=== PATIENT | male | born 1975 | race Two or more races ===

== ENCOUNTER 2022-08-07 22:53 | Inpatient (IN) | payer MEDICARE, MEDICAID ==
[2022-08-08] MEDS ORDERED: HALOPERIDOL 5 MG TABLET PO PRN (03:00)
[2022-08-08] MEDS ORDERED: ZOLPIDEM TARTRATE 10 MG TABLET PO PRN (03:00)
[2022-08-08 03:45] VITALS: BP 99/86
[2022-08-08] MEDS: CEPHALEXIN MONOHYDRATE 500 MG CAPSULE PO SCH ×4 (08:07→21:00)
[2022-08-08 08:09] VITALS: BP 94/53
[2022-08-08] MEDS: LORazepam 2 MG TABLET PO PRN ×2 (10:57→16:14)
[2022-08-08] MEDS ORDERED: DiphenhydrAMINE HCL 50 MG/ML VIAL ONE (11:13)
[2022-08-08] MEDS ORDERED: HALOPERIDOL LACTATE 5 MG/ML VIAL ONE (11:13)
[2022-08-08] MEDS ORDERED: HALOPERIDOL LACTATE 5 MG/ML VIAL IM ONE ×2 (11:15→16:15)
[2022-08-08] MEDS ORDERED: LORazepam 2 MG/ML VIAL IM ONE ×2 (11:15→16:15)
[2022-08-08] MEDS ORDERED: DiphenhydrAMINE HCL 50 MG/ML VIAL IM ONE ×2 (11:15→16:15)
[2022-08-08] MEDS ORDERED: TUBERCULIN, PURIFIED PROTEIN DERIVATIVE 5 TU/0.1 ML SYRINGE ID ONE (15:45)
[2022-08-08] MEDS ORDERED: CYANOCOBALAMIN 1,000 MCG/ML VIAL IM ONE (15:45)
[2022-08-08] MEDS ORDERED: GuaiFENesin/D-METHORPHAN [SUGAR-FREE] 200-20MG/10 ML SYRUP UDCUP PO PRN (15:45)
[2022-08-08] MEDS ORDERED: MAGNESIUM HYDROXIDE SUSPENSION 30 ML UDCUP PO PRN (15:45)
[2022-08-08] MEDS ORDERED: ACETAMINOPHEN 325 MG TABLET PO PRN (15:45)
[2022-08-08] MEDS ORDERED: MAG HYDROX/AL HYDROX/SIMETH ES 30 ML SUSPENSION UDCUP PO PRN (15:45)
[2022-08-08 16:00] VITALS: BP 115/62
[2022-08-08] MEDS: THIAMINE 100 MG TABLET PO SCH (16:29)
[2022-08-08] MEDS: DIVALPROEX SODIUM 500 MG ER TABLET PO SCH (21:00)
[2022-08-08] MEDS: MELATONIN 5 MG TABLET PO SCH (21:00)
[2022-08-08] MEDS: OLANZapine 5 MG RAPDIS TABLET PO SCH (21:00)
[2022-08-09] VITALS (7 sets, daily range): BP systolic 97–124; BP diastolic 62–82
[2022-08-09 07:41] LABS: HEMOGLOBIN A1C 4.6 % (3.8-5.6)
[2022-08-09] MEDS: OLANZapine 5 MG RAPDIS TABLET PO PRN ×2 (07:45→16:13)
[2022-08-09] MEDS: LORazepam 2 MG TABLET PO PRN ×3 (07:45→20:25)
[2022-08-09 07:55] LABS: CHOL/HDL RATIO 1.8 (4.2-7.3); FREE T4 (FREE THYROXINE) 1.09 ng/dL (0.76-1.46); THYROID STIMULATING HORMONE 2.2 uIU/mL (0.36-3.74)
[2022-08-09] MEDS: MULTIVITAMINS WITH MINERALS, THERAPEUTIC TABLET PO SCH (08:00)
[2022-08-09] MEDS: CEPHALEXIN MONOHYDRATE 500 MG CAPSULE PO SCH ×4 (08:00→20:25)
[2022-08-09] MEDS: THIAMINE 100 MG TABLET PO SCH ×2 (08:00→16:12)
[2022-08-09] MEDS: OMEGA-3/DHA/EPA/FISH OIL 1,000 MG CAPSULE PO SCH (08:05)
[2022-08-09] MEDS: FOLIC ACID 1 MG TABLET PO SCH (08:05)
[2022-08-09] MEDS: HydrOXYzine PAMOATE 50 MG CAPSULE PO PRN ×2 (16:12→20:25)
[2022-08-09] MEDS: OLANZapine 5 MG RAPDIS TABLET PO SCH (20:24)
[2022-08-09] MEDS: DIVALPROEX SODIUM 500 MG ER TABLET PO SCH (20:24)
[2022-08-09] MEDS: MELATONIN 5 MG TABLET PO SCH (20:25)
[2022-08-10] MEDS: LORazepam 2 MG TABLET PO PRN ×3 (05:54→14:04)
[2022-08-10] MEDS: OLANZapine 5 MG RAPDIS TABLET PO PRN ×3 (05:54→14:05)
[2022-08-10] MEDS: HydrOXYzine PAMOATE 50 MG CAPSULE PO PRN ×3 (05:54→14:05)
[2022-08-10] MEDS: FOLIC ACID 1 MG TABLET PO SCH (08:20)
[2022-08-10] MEDS: MUPIROCIN CALCIUM 2% 22 GM OINTMENT NASAL SCH ×2 (08:20→17:24)
[2022-08-10] MEDS: MULTIVITAMINS WITH MINERALS, THERAPEUTIC TABLET PO SCH (08:21)
[2022-08-10] MEDS: OMEGA-3/DHA/EPA/FISH OIL 1,000 MG CAPSULE PO SCH (08:21)
[2022-08-10] MEDS: THIAMINE 100 MG TABLET PO SCH ×2 (08:21→17:24)
[2022-08-10] MEDS: CEPHALEXIN MONOHYDRATE 500 MG CAPSULE PO SCH ×4 (08:21→21:00)
[2022-08-10 10:42] VITALS: BP 119/79
[2022-08-10 11:17] VITALS: BP 124/68
[2022-08-10 18:30] VITALS: BP 151/79
[2022-08-10 20:01] VITALS: BP 114/76
[2022-08-10] MEDS: DIVALPROEX SODIUM 500 MG ER TABLET PO SCH (21:00)
[2022-08-10] MEDS: MELATONIN 5 MG TABLET PO SCH (21:00)
[2022-08-10] MEDS: OLANZapine 10 MG RAPDIS TABLET PO SCH (21:00)
[2022-08-10 23:00] VITALS: BP 127/82
[2022-08-11 00:56] VITALS: BP 133/71
[2022-08-11] MEDS: MULTIVITAMINS WITH MINERALS, THERAPEUTIC TABLET PO SCH (08:01)
[2022-08-11] MEDS: OMEGA-3/DHA/EPA/FISH OIL 1,000 MG CAPSULE PO SCH (08:01)
[2022-08-11] MEDS: THIAMINE 100 MG TABLET PO SCH ×2 (08:01→16:12)
[2022-08-11] MEDS: FOLIC ACID 1 MG TABLET PO SCH (08:01)
[2022-08-11] MEDS: CEPHALEXIN MONOHYDRATE 500 MG CAPSULE PO SCH ×4 (08:01→20:17)
[2022-08-11] MEDS: MUPIROCIN CALCIUM 2% 22 GM OINTMENT NASAL SCH ×2 (08:02→17:04)
[2022-08-11 08:45] VITALS: BP 130/72
[2022-08-11] MEDS: LORazepam 2 MG TABLET PO PRN ×3 (11:17→20:17)
[2022-08-11 13:09] VITALS: BP 130/72
[2022-08-11] MEDS: HydrOXYzine PAMOATE 50 MG CAPSULE PO PRN ×2 (16:12→20:17)
[2022-08-11 20:12] VITALS: BP 123/84
[2022-08-11] MEDS: OLANZapine 10 MG RAPDIS TABLET PO SCH (20:17)
[2022-08-11] MEDS: DIVALPROEX SODIUM 500 MG ER TABLET PO SCH (20:17)
[2022-08-11] MEDS: MELATONIN 5 MG TABLET PO SCH (20:21)
[2022-08-12] MEDS: HydrOXYzine PAMOATE 50 MG CAPSULE PO PRN (02:51)
[2022-08-12] MEDS: MULTIVITAMINS WITH MINERALS, THERAPEUTIC TABLET PO SCH (08:07)
[2022-08-12] MEDS: CEPHALEXIN MONOHYDRATE 500 MG CAPSULE PO SCH ×2 (08:07→13:05)
[2022-08-12] MEDS: FOLIC ACID 1 MG TABLET PO SCH (08:07)
[2022-08-12] MEDS: MUPIROCIN CALCIUM 2% 22 GM OINTMENT NASAL SCH (08:07)
[2022-08-12] MEDS: THIAMINE 100 MG TABLET PO SCH (08:07)
[2022-08-12] MEDS: OMEGA-3/DHA/EPA/FISH OIL 1,000 MG CAPSULE PO SCH (08:07)
[2022-08-12 08:12] VITALS: BP 111/74
[2022-08-12 08:21] VITALS: BP 117/74
[2022-08-12] MEDS ORDERED: MELA5TAB40 PO (11:01)
[2022-08-12] MEDS ORDERED: OLAN10TA26 PO (11:01)
[2022-08-12] MEDS ORDERED: DIVA500T69 PO (11:01)
== END 2022-08-12 13:35 | DRG 885 ==
LOC: B3A 08-08 02:40
PROVIDERS: ADMIT Psychiatry & Neurology Psychiatry; ATTEND Psychiatry & Neurology Psychiatry
DX: F20.9 Schizophrenia, unspecified (principal); F71 Moderate intellectual disabilities; L03.317 Cellulitis of buttock; F29 Unspecified psychosis not due to a substance or known physiological condition; J45.909 Unspecified asthma, uncomplicated; G40.909 Epilepsy, unspecified, not intractable, without status epilepticus; M19.90 Unspecified osteoarthritis, unspecified site; L02.32 Furuncle of buttock; Z91.148 Patient's other noncompliance with medication regimen for other reason; Z59.9 Problem related to housing and economic circumstances, unspecified; Z63.9 Problem related to primary support group, unspecified; Z65.3 Problems related to other legal circumstances
CPT/HCPCS: 80061; 80164; 83036; 84439; 84443; 86592; 87081; J1200; J1630; J2060; Q9967

== ENCOUNTER 2022-08-08 17:20 | Emergency (ER) | payer MEDICARE, MEDICAID ==
[~2022-08-08] VITALS: Ht 182.9 cm; Wt 84.1 kg
[2022-08-08] MEDS ORDERED: ZOLPIDEM TARTRATE 10 MG TABLET PO ONE (20:45)
[2022-08-09 02:57] VITALS: BP 110/60
== END 2022-08-09 03:01 | disposition home or self-care (01) ==
LOC: EMS 17:21
DX: S00.03XA Contusion of scalp, initial encounter (principal); F48.9 Nonpsychotic mental disorder, unspecified; F79 Unspecified intellectual disabilities; F29 Unspecified psychosis not due to a substance or known physiological condition; W19.XXXA Unspecified fall, initial encounter; Y93.89 Activity, other specified; Y92.89 Other specified places as the place of occurrence of the external cause; Y99.8 Other external cause status
CPT/HCPCS: 70450; 72125; 99291

== ENCOUNTER 2022-08-10 18:53 | Emergency (ER) | payer MEDICARE, MEDICAID ==
[~2022-08-10] VITALS: Ht 195.6 cm; Wt 68.2 kg
[2022-08-10] MEDS ORDERED: LIDOCAINE 1% 10 ML VIAL SQ ONE (20:30)
[2022-08-10 21:47] VITALS: BP 114/71
== END 2022-08-10 22:31 | disposition still patient (30) ==
LOC: EMS 18:53
DX: S00.03XA Contusion of scalp, initial encounter (principal); J45.909 Unspecified asthma, uncomplicated; X58.XXXA Exposure to other specified factors, initial encounter; Y93.89 Activity, other specified; Y92.89 Other specified places as the place of occurrence of the external cause; Y99.8 Other external cause status
CPT/HCPCS: 70450; 72125; 99284